=== PATIENT | female | born 1980 | race African-American/Black ===

== ENCOUNTER 2019-12-18 20:03 | Emergency (ER) | payer BC | END 2019-12-18 20:58 | disposition home or self-care (01) | LOC: MADERS 20:03 | DX: M79.605 Pain in left leg (principal) ==

== ENCOUNTER 2020-02-02 10:50 | Outpatient (CLI) | payer BC ==
--- NOTE | 2020-02-02 13:12 | RAD ---
THORACIC SPINE 3 VIEWS: Date: 02/02/2020 HISTORY: Thoracic spine fracture. COMPARISON: None. FINDINGS: There are minimal compression changes involving the superior end plate. This is felt to be at the lev el of the T12 vertebral body. I do not appreciate any bony retropulsion. Also, minimal loss of verteb ral body height involving the T10 vertebral body. There is some osteophytic change in this area. IMPRESSION: Minimal loss of vertebral body height with some minimal superior end plate compression at what appear to be T12 and also minimal changes at T10. The T10 changes could possibly be related to Schmorl's no de changes. POS: TAMMY
== END 2020-02-02 10:51 | disposition home or self-care (01) ==
LOC: MADRAD 10:50
PROVIDERS: ATTEND Surgery
DX: S22.009A Unspecified fracture of unspecified thoracic vertebra, initial encounter for closed fracture (principal)
CPT/HCPCS: 72072

== ENCOUNTER 2020-02-29 11:13 | Outpatient (CLI) | payer BC ==
--- NOTE | 2020-02-29 12:43 | RAD ---
Frontal and lateral imaging of the thoracic spine: 02/29/2020 COMPARISON: 02/02/2020 HISTORY: Thoracic vertebral body fracture FINDINGS: A mild superior endplate/anterior wedge compression fracture is noted at what appears to re present T11 and L1 vertebral levels, not significantly changed when compared to the prior examination. No anterolisthesis or retrolisthesis is noted. IMPRESSION: Mild anterior wedge compression fractures as detailed above, stable when compared to the prior examination.
== END 2020-02-29 11:14 | disposition home or self-care (01) ==
LOC: MADRAD 11:13
PROVIDERS: ATTEND Surgery
DX: S22.080A Wedge compression fracture of T11-T12 vertebra, initial encounter for closed fracture (principal); S32.010A Wedge compression fracture of first lumbar vertebra, initial encounter for closed fracture
CPT/HCPCS: 72070

== ENCOUNTER 2020-05-31 13:31 | Outpatient (CLI) | payer BC ==
--- NOTE | 2020-05-31 15:48 | RAD ---
LUMBAR SPINE: 05/31/20 Three views. HISTORY: Vertebral fracture. COMPARISON: Comparison made to thoracic spine exam of 02/29/20. That exam revealed mild compression deformities at T11 and L1. On today's lumbar spine exam, there are six lumbar type vertebrae. Superior end plate compression at T11 and L1 again noted. No significant change when compared to the 02/29/20 exam. The other lumbar vertebrae maintain height and alignment. The disc spaces are preserved. No evidence of spondylolisthesis. IMPRESSION: 1. Superior end plate compression with mild anterior wedging at T11 and L1 again noted. The find ings are stable from prior exam. 2. Six lumbar type vertebrae with L6 being transitional. POS: AGW
== END 2020-05-31 13:32 | disposition home or self-care (01) ==
LOC: MADRAD 13:31
PROVIDERS: ATTEND Surgery
DX: S22.009D Unspecified fracture of unspecified thoracic vertebra, subsequent encounter for fracture with routine healing (principal); G95.20 Unspecified cord compression
CPT/HCPCS: 72100

== ENCOUNTER 2025-03-16 15:27 | Emergency (ER) | payer BC ==
[2025-03-16] MEDS ORDERED: Tetracaine 0.5% PF 4 ML BOT ONE (15:45)
[2025-03-16] MEDS ORDERED: Fluorescein Opthalmic Strip ONE (15:45)
== END 2025-03-16 16:59 | disposition home or self-care (01) ==
LOC: MADERS 15:27
DX: H57.89 Other specified disorders of eye and adnexa (principal)
CPT/HCPCS: 99283